=== PATIENT | male | born 1960 | race Hispanic/Latino ===

== ENCOUNTER 2019-10-04 11:32 | Emergency (ER) | payer OTHER ==
[2019-10-04 11:51] VITALS: BP 132/87
--- NOTE | 2019-10-04 11:53 | Emergency Department Report ---
Chief Complaint: Earache Stated Complaint: EAR PAIN Time Seen by Provider: 10/04/19 11:45 - HPI History of Present Illness: This is a 59 y.o. M. that presents to the ER with bilateral ear pain for 2-3 days. Patient states pain is worse on the right ear. He is currently taking NSAIDs and flonase with minimal improvement of symptoms. Patient states he is staying at [facility] and couldn't find an Urgent Care near by. He denies tinitus, drainage, change in hearing, fever, chills, cough, congestion, nausea or vomiting. - ROS Review of Systems: Review of Systems: ROS: Stated complaint: bilateral ear pain Other details as noted in HPI Comment: All other systems reviewed and negative Constitutional: denies: chills, fever HEENT: bilateral ear pain. denies: sore throat Respiratory: denies: cough, shortness of breath. Cardiovascular: denies: chest pain Gastrointestinal: denies: nausea, vomiting Musculoskeletal: denies: myalgia - Exam Vital Signs: Vital Signs 10/04/19 11:45 Temperature 98.8 F Pulse Rate 95 H Respiratory 18 Rate Blood Pressure 132/87 O2 Sat by Pulse 96 Oximetry Physical Exam: - General Limitations: No Limitations General appearance: alert, in no apparent distress, obese ENT exam: Present: Erythematous right external canal, tragus tenderness, TM normal on left ear. Normal pharynx, uvula midline, mucous membranes moist, no tenderness on percussion of sinuses Neck exam: Present: normal inspection Respiratory exam: Present: normal lung sounds bilaterally. Absent: respiratory distress, wheezes, rales, rhonchi, stridor Cardiovascular Exam: Present: regular rate, normal rhythm Extremities exam: Present: normal inspection. Absent: pedal edema, calf tenderness Neurological exam: Present: alert, oriented X3 Psychiatric exam: Present: normal affect, normal mood Skin exam: Present: warm, dry, intact, normal color MSE screening note: Focused history and physical exam performed. Due to findings the following was ordered: ED Medical Decision Making - Medical Decision Making This is a 59-year-old male that presents with bilateral ear pain for 3 days. Patient is stable was examined by me. He is in no acute distress. Vitals are normal. Erythematous right external canal, tragus tenderness, TM normal on left ear. Otitis Externa of right ear. Start cortisporin otic drops. Follow-up with a primary care doctor in 3-5 days or if symptoms worsen return to emergency room as soon as possible. At time of discharge, the patient does not seem toxic or ill in appearance. No acute signs of distress noted. Patient agrees to discharge treatment plan of care. No further questions noted by the patient. ED Disposition for MSE Clinical Impression: Otalgia of both ears Otitis externa Qualifiers: Otitis externa type: swimmer's ear Chronicity: acute Laterality: right Qualified Code(s): H60.331 - Swimmer's ear, right ear Disposition: TO HOME OR SELFCARE Is pt being admited?: No Condition: Stable Instructions: Otitis Externa (ED) Additional Instructions: Avoid high altitudes. Use bathing cap to avoid wetting ears during showers. Follow-up with a primary care doctor in 3-5 days or if symptoms worsen and continue return to the emergency department as soon as possible. Prescriptions: Neomyc/Colist/Hydrocort/Thonzn [Cortisporin-Tc Ear Suspension] 10 ml OT QID 7 Days #1 drops.susp Referrals: [facility] [Provider Group] - 3-5 Days [facility] [Provider Group] - 3-5 Days [facility] [Provider Group] - 3-5 Days Time of Disposition: 12:09
== END 2019-10-04 12:20 | disposition home or self-care (01) ==
LOC: ED 11:32
DX: H92.03 Otalgia, bilateral (principal); H60.8X1 Other otitis externa, right ear
CPT/HCPCS: 99282